=== PATIENT | female | born 1945 | race Caucasian/White ===

== ENCOUNTER → 2016-10-19 | Outpatient (CLI) | payer MEDICARE | END | disposition home or self-care (01) | LOC: CVU 06:45 | PROVIDERS: ATTEND Internal Medicine Cardiovascular Disease | DX: I65.23 Occlusion and stenosis of bilateral carotid arteries (principal); I10 Essential (primary) hypertension; E11.9 Type 2 diabetes mellitus without complications; Z95.1 Presence of aortocoronary bypass graft | CPT/HCPCS: 93880 ==

== ENCOUNTER 2018-04-29 10:39 | Emergency (ER) | payer MEDICARE ==
[~2018-04-29] VITALS: Ht 172.7 cm; Wt 80.7 kg
[2018-04-29 11:55] LABS: BASOPHILS # (AUTO) 0.03 x10^3/uL (0-0.1); BASOPHILS % (AUTO) 1 % (0-1); EOSINOPHILS # (AUTO) 0.33 x10^3/uL (0-0.4); EOSINOPHILS % (AUTO) 7 % (1-7); LYMPHOCYTES # (AUTO) 1.33 x10^3/uL (1-3.4); LYMPHOCYTES % (AUTO) 28 % (22-44); MD NO; MEAN CORPUSCULAR HEMOGLOBIN 25.9 pg (27.0-34.8); MEAN CORPUSCULAR HGB CONC 33.7 g/dL (32.4-35.8); MEAN CORPUSCULAR VOLUME 76.8 fL (80-100); MEAN PLATELET VOLUME 10.2 fL (7.4-10.4); MONOCYTES # (AUTO) 0.49 x10^3/uL (0.2-0.8); MONOCYTES % (AUTO) 10 % (2-9); NEUTROPHILS # (AUTO) 2.67 x10^3/uL (1.8-6.8); NEUTROPHILS % (AUTO) 55 % (42-75); PLATELET COUNT 175 x10^3/uL (130-400); RED BLOOD COUNT 4.19 x10^6/uL (3.82-5.3); RED CELL DISTRIBUTION WIDTH 14.5 % (9.6-15.2)
[2018-04-29 12:09] LABS: ALBUMIN 3.3 g/dL (3.4-5.0); ANION GAP 6 mmol/L (5-15); CALCIUM 8.4 mg/dL (8.5-10.1); CHLORIDE 104 mmol/L (98-107)
[2018-04-29 12:10] LABS: CREATININE 1.19 mg/dL (0.55-1.02)
[2018-04-29 12:42] VITALS: BP 135/78
== END 2018-04-29 12:50 | disposition home or self-care (01) ==
LOC: ED 11:06
DX: J06.9 Acute upper respiratory infection, unspecified (principal); E11.9 Type 2 diabetes mellitus without complications; J45.909 Unspecified asthma, uncomplicated
CPT/HCPCS: 36415; 71046; 80048; 82040; 85025; 87081; 87880; 99284; J7512

== ENCOUNTER → 2018-07-07 | Outpatient (CLI) | payer MEDICARE | END | disposition home or self-care (01) | LOC: CVU 12:52 | PROVIDERS: ATTEND Internal Medicine Cardiovascular Disease | DX: I65.23 Occlusion and stenosis of bilateral carotid arteries (principal); I10 Essential (primary) hypertension; E78.5 Hyperlipidemia, unspecified; I25.10 Atherosclerotic heart disease of native coronary artery without angina pectoris; Z95.1 Presence of aortocoronary bypass graft | CPT/HCPCS: 93880 ==

== ENCOUNTER 2019-08-10 10:00 | Day surgery (SDC) | payer MEDICARE ==
[~2019-08-10] VITALS: Ht 172.7 cm; Wt 79.5 kg
[2019-08-10] MEDS ORDERED: SODIUM CHLORIDE 0.9% 1,000 ML IV SCH ×2 (10:32→13:24)
[2019-08-10 10:42] VITALS: BP 109/64
[2019-08-10] MEDS ORDERED: DIPHENHYDRAMINE 50 MG/ML, 1ML IVPush ONE (11:00)
[2019-08-10] MEDS ORDERED: DAPA10TA PO (11:11)
[2019-08-10] MEDS ORDERED: ASPI81TA45 PO (11:11)
[2019-08-10] MEDS ORDERED: EXEN2PEN SQ (11:11)
[2019-08-10] MEDS ORDERED: BUDE10.22 INH (11:11)
[2019-08-10] MEDS ORDERED: AMLO-150 PO (11:11)
[2019-08-10] MEDS ORDERED: OMEP-110 PO (11:11)
[2019-08-10] MEDS ORDERED: LEVO88TA43 PO (11:11)
[2019-08-10] MEDS ORDERED: TELM20TA PO (11:11)
[2019-08-10] MEDS ORDERED: MOME13HF2 INH (11:11)
[2019-08-10] MEDS ORDERED: TRIA10.8 INH (11:11)
[2019-08-10] MEDS ORDERED: INSU100I34 SQ (11:11)
[2019-08-10] MEDS ORDERED: ALIR150P PO (11:11)
[2019-08-10] MEDS ORDERED: CARV6.252 PO (11:11)
[2019-08-10] MEDS ORDERED: METF10007 PO (11:13)
[2019-08-10] MEDS ORDERED: DIPHENHYDRAMINE 50 MG/ML, 1ML ONE (11:20)
[2019-08-10] MEDS ORDERED: VERAPAMIL 2.5 MG/ML, 2ML ONE (12:34)
[2019-08-10] MEDS ORDERED: FENTANYL PF 100 MCG/2ML ONE (12:34)
[2019-08-10] MEDS ORDERED: MIDAZOLAM 1 MG/ML, 2ML ONE (12:34)
[2019-08-10] MEDS ORDERED: HEPARIN 1,000 UNITS/ML, 10ML ONE (12:35)
[2019-08-10] MEDS ORDERED: LIDOCAINE-MPF 1%, 5ML ONE (12:35)
== END 2019-08-10 15:31 | disposition home or self-care (01) ==
LOC: CACL 10:00
PROVIDERS: ATTEND Internal Medicine Cardiovascular Disease
DX: R94.39 Abnormal result of other cardiovascular function study (principal); I25.110 Atherosclerotic heart disease of native coronary artery with unstable angina pectoris; I25.82 Chronic total occlusion of coronary artery; I10 Essential (primary) hypertension; E78.2 Mixed hyperlipidemia; J45.909 Unspecified asthma, uncomplicated; E11.9 Type 2 diabetes mellitus without complications; Z79.82 Long term (current) use of aspirin; Z79.899 Other long term (current) drug therapy; Z87.891 Personal history of nicotine dependence; Z88.0 Allergy status to penicillin; Z88.2 Allergy status to sulfonamides; Z88.5 Allergy status to narcotic agent; Z88.7 Allergy status to serum and vaccine; Z82.49 Family history of ischemic heart disease and other diseases of the circulatory system
CPT/HCPCS: 93459; 99156; C1769; C1894; J1200; J1644; J2250; Q9967; J3010

== ENCOUNTER → 2020-05-09 | Outpatient (CLI) | payer MEDICARE ==
[~2020-05-09] MED LIST: ALIR150P PO; AMLO-150 PO; ASPI81TA45 PO; BUDE10.22 INH; CARV6.252 PO; DAPA10TA PO; EXEN2PEN SQ; INSU100I34 SQ; LEVO88TA43 PO; METF10007 PO; MOME13HF2 INH; OMEP-110 PO; TELM20TA PO; TRIA10.8 INH
== END | disposition home or self-care (01) ==
LOC: CVU 12:52
PROVIDERS: ATTEND Internal Medicine Cardiovascular Disease
DX: I08.8 Other rheumatic multiple valve diseases (principal); I65.23 Occlusion and stenosis of bilateral carotid arteries; I10 Essential (primary) hypertension; I65.8 Occlusion and stenosis of other precerebral arteries
CPT/HCPCS: 93306; 93356; 93880

== ENCOUNTER 2020-12-14 11:31 | Emergency (ER) | payer MEDICARE ==
[~2020-12-14] VITALS: Ht 172.7 cm; Wt 79.8 kg
[~2020-12-14 11:31] MED LIST changes: -ALIR150P PO; +ALIR150P3 PO
--- NOTE | 2020-12-14 11:58 | NUR ---
PT'S MAIN COMPLAINT AT THIS TIME IS "STOMACH BURNING/BLOATING" THAT STARTED THIS AM. MED STUDENT AT NOW. PT IN MODERATE DISTRESS D/T EPIGASTRIC PAIN. Addendum: 12/14/20 at 1204 by HBENSON PT ANXIOUS. 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
[2020-12-14] MEDS ORDERED: SODIUM CHLORIDE FLUSH 10ML SYR IVF ONE (12:30)
[2020-12-14] MEDS ORDERED: ASPIRIN 81 MG TABLET CHEW PO ONE (12:30)
[2020-12-14] MEDS ORDERED: ONDANSETRON 2MG/ML, 2ML IVPush ONE (12:30)
[2020-12-14] MEDS ORDERED: MAALOX/HYOSCYAMINE/LIDOCAINE 45 ML BTL PO ONE (12:30)
[2020-12-14] MEDS ORDERED: MORPHINE SULFATE 4 MG/ML, 1ML IVPush PRN (12:30)
[2020-12-14] MEDS ORDERED: ASPIRIN 81 MG TABLET CHEW ONE (12:47)
[2020-12-14] MEDS ORDERED: MORPHINE SULFATE 4 MG/ML, 1ML ONE (12:47)
[2020-12-14] MEDS ORDERED: MAALOX/HYOSCYAMINE/LIDOCAINE 45 ML BTL ONE (12:47)
[2020-12-14] MEDS ORDERED: ONDANSETRON 2MG/ML, 2ML ONE (12:47)
--- NOTE | 2020-12-14 13:04 | NUR ---
PT MEDICATED PER ORDERS. VERBALIZED IMMEDIATE RELIEF OF EPIGASTRIC PAIN AFTER MORPHINE. AMBULATED TO TO VOID WITH STAND BY ASSIST. ASSISTED BACK INTO [facility]. ON ALL MONITORS.
[2020-12-14 13:06] LABS: ALANINE AMINOTRANSFERASE 20 U/L (12-78); ALBUMIN 3.1 g/dL (3.4-5.0); ANION GAP 6 mmol/L (5-15); CALCIUM 8.2 mg/dL (8.5-10.1); CHLORIDE 103 mmol/L (98-107); CREATININE 0.93 mg/dL (0.55-1.02)
[2020-12-14 13:11] LABS: ALKALINE PHOSPHATASE 68 U/L (45-117); BILIRUBIN,TOTAL 0.3 mg/dL (0.2-1.0); TOTAL PROTEIN 6.8 g/dL (6.4-8.2); TROPONIN I < 0.015 ng/mL (0.000-0.045)
[2020-12-14 13:16] LABS: BASOPHILS % (AUTO) 2 % (0-1); EOSINOPHILS % (AUTO) 4 % (1-7); LYMPHOCYTES % (AUTO) 30 % (22-44); MEAN CORPUSCULAR HGB CONC 31.8 g/dL (32.4-35.8); MEAN PLATELET VOLUME 8.4 fL (7.4-10.4); MONOCYTES % (AUTO) 7 % (2-9); NEUTROPHILS % (AUTO) 58 % (42-75); PLATELET COUNT 241 x10^3/uL (130-400); RED BLOOD COUNT 4.88 x10^6/uL (3.82-5.3); RED CELL DISTRIBUTION WIDTH 16.7 % (9.6-15.2)
--- NOTE | 2020-12-14 13:27 | NUR ---
PT RETURNS FROM XR.
--- NOTE | 2020-12-14 14:15 | NUR ---
PT HAS BEEN RESTING QUIETLY IN [facility]. STATES SHE FEELS OKAY AT THIS TIME, EPIGASTRIC PAIN AT 4/10. RV'WD POC WITH HER. REQUESTING WATER; WILL NOTIFY ERP.
--- NOTE | 2020-12-14 14:50 | NUR ---
MEDICAL STUDENT WAS IN FOR RECHECK.
--- NOTE | 2020-12-14 15:03 | NUR ---
ERP AT FOR RECHECK.
[2020-12-14 15:30] VITALS: BP 131/63
--- NOTE | 2020-12-14 15:41 | NUR ---
D/C INSTRUCTIONS RV'WD WITH PT. INSTRUCTED PT TO RETURN TO ED IF SYMPTOMS NOT IMPROVING OR IF SHE HAS ANY OTHER CONCERNING SYMPTOMS. AMBULATED OUT OF ED WITHOUT DIFFICULTY, STATES SHE WILL TAKE A CAB HOME.
== END 2020-12-14 15:41 | disposition home or self-care (01) ==
LOC: ED 12:00
DX: K29.00 Acute gastritis without bleeding (principal); R94.31 Abnormal electrocardiogram [ECG] [EKG]; Z87.891 Personal history of nicotine dependence
CPT/HCPCS: 36415; 74022; 80053; 83690; 84484; 85025; 93005; 96374; 96375; 99285; J2270; J2405